=== PATIENT | female | born 1945 | race Caucasian/White ===

== ENCOUNTER → 2017-03-28 | Outpatient (CLI) | payer OTHER, MEDICARE | LOC: BRMIMAGING 12:55 | DX: Z12.31 Encounter for screening mammogram for malignant neoplasm of breast (principal) | CPT/HCPCS: G0202 ==

== ENCOUNTER → 2018-05-11 | Outpatient (CLI) | payer OTHER, MEDICARE | LOC: FIMAGING 18:28 | PROVIDERS: ATTEND Physician Assistant | DX: M51.05 Intervertebral disc disorders with myelopathy, thoracolumbar region (principal); M48.061 Spinal stenosis, lumbar region without neurogenic claudication ==